=== PATIENT | male | born 1980 | race Caucasian/White ===

== ENCOUNTER 2020-12-29 11:42 | Emergency (ER) | payer SELFPAY ==
[~2020-12-29] VITALS: Ht 177.8 cm; Wt 81.0 kg
[2020-12-29] MEDS ORDERED: LORazepam 2 MG/ML VIAL ONE (11:56)
[2020-12-29] MEDS ORDERED: LORazepam 2 MG/ML VIAL IVP ONE (12:00)
[2020-12-29 12:19] LABS: BASOPHILS % (AUTO) 0.6 % (0.0-2.0); EOSINOPHILS % (AUTO) 2.3 % (1.0-6.0); HEMATOCRIT 44.7 % (41-53); HEMOGLOBIN 15.1 g/dL (13.5-17.5); LYMPHOCYTES # (AUTO) 1.4 K/uL (1.0-4.8); LYMPHOCYTES % (AUTO) 19.8 % (22.0-44.0); MEAN CORPUSCULAR HEMOGLOBIN 30.6 pg (26.0-34.0); MEAN CORPUSCULAR HGB CONC 33.9 G/dL (31.0-37.0); MEAN CORPUSCULAR VOLUME 90 fL (80-100); MONOCYTES # (AUTO) 0.4 K/uL (0.1-1.0); MONOCYTES % (AUTO) 5.3 % (2.0-9.0); PLATELET COUNT (AUTO) 264 K/uL (150-450); RED BLOOD CELL COUNT(AUTO) 4.95 MIL/uL (4.50-5.90); RED CELL DISTRIBUTION WIDTH 14.4 % (11.5-14.5)
[2020-12-29 12:47] LABS: ANION GAP 11 mmol/L (8-16); CARBON DIOXIDE 25 mmol/L (22-29); CHLORIDE 106 mmol/L (98-107); CREATININE 0.83 mg/dL (0.60-1.30); GLUCOSE,RANDOM 121 mg/dL (70-110); POTASSIUM 4.3 mmol/L (3.5-5.1); SODIUM SERUM 142 mmol/L (136-145); UREA NITROGEN, BLOOD 7 mg/dL (7-18)
[2020-12-29 12:48] LABS: CALCIUM, TOTAL 8.4 mg/dL (8.8-10.5); GLOMERULAR FILTR. RATE CALC > 60 mL/min (>60)
[2020-12-29 12:55] LABS: AMMONIA 20 umol/L (11-32)
[2020-12-29 12:56] LABS: TROPONIN I < 0.02 ng/mL (0.00-0.05)
[2020-12-29 13:00] LABS: LACTIC ACID 2.9 mmol/L (0.4-2.0)
[2020-12-29 13:03] LABS: ALANINE AMINOTRANSFERASE 27 U/L (12-78); ALBUMIN 3.8 g/dL (3.4-5.0); ALKALINE PHOSPHATASE 69 U/L (46-116); ASPARTATE AMINOTRANSFERASE 16 U/L (15-37); BILIRUBIN,TOTAL 0.3 mg/dL (0.1-1.0); TOTAL PROTEIN, SERUM 7.4 g/dL (6.4-8.2)
[2020-12-29] MEDS ORDERED: SODIUM CHLORIDE 0.9% 1,000 ML IV ONE (13:15)
[2020-12-29 14:21] VITALS: BP 130/80
== END 2020-12-29 14:22 | disposition home or self-care (01) ==
LOC: EMS 11:49
DX: R41.82 Altered mental status, unspecified (principal); R41.0 Disorientation, unspecified
CPT/HCPCS: 36415; 70450; 71045; 80053; 82140; 83605; 84443; 84484; 85025; 93005; 96361; 96374; 99285; G0480; J2060